=== PATIENT | female | born 1980 | race Caucasian/White ===

== ENCOUNTER 2016-12-07 09:22 | Observation (INO) | payer BC ==
[2016-12-01 09:28] VITALS: Ht 160 cm; Wt 78.9 kg
--- NOTE | 2016-12-01 09:54 | PAT Medication Instructions ---
Service Date Dec 01, 2016. Current Home Medication List Cholecalciferol (Vitamin D3), 1 CAP PO HS Hydrochlorothiazide (Hydrochlorothiazide), 1 TAB PO QAM Levothyroxine Sodium (Levothyroxine Sodium), 1 TAB PO QAM Metformin Hcl (Glucophage), 1,000 MG PO NOON/PM Multivitamins/Minerals (Mvi With Minerals), 1 TAB PO HS Medication Instructions For Your Scheduled Surgery - Hold the following medications 48 hours prior to surgery: Metformin Hcl (Glucophage), 1,000 MG PO NOON/PM - Hold the following medications the morning of surgery: Hydrochlorothiazide (Hydrochlorothiazide), 1 TAB PO QAM - Take the following medications the morning of surgery with a sip of water: Levothyroxine Sodium (Levothyroxine Sodium), 1 TAB PO QAM - Take the following medications as scheduled the night before surgery: Multivitamins/Minerals (Mvi With Minerals), 1 TAB PO HS Cholecalciferol (Vitamin D3), 1 CAP PO HS If you have any questions please call us at [phone] or [phone] or [phone]
[2016-12-01 10:24] LABS: BASO % 0.4 %; BASO ABS # 0.04 K/uL (0-0.2); COMPLETE YES; EOS % 6.1 %; HEMATOCRIT 41.4 % (37-47); IG% 0.4 %; LYMPH % 36.1 %; LYMPH ABS # 3.56 K/uL (1.2-3.4); MEAN CELL VOLUME 82.3 fL (80-100); MEAN CORPUSCULAR HEMOGLOBIN 28.2 pg (25-34); MEAN CORPUSCULAR HGB CONC 34.3 g/dl (32-36); MEAN PLATELET VOLUME 9.7 fL (7.4-10.4); MONO % 8.2 %; NEUT % 48.8 %; PLATELET COUNT 280 K/uL (130-400); RED BLOOD COUNT 5.03 M/uL (4.2-5.4); WHITE BLOOD COUNT 9.86 K/uL (4.8-10.8)
[2016-12-01 10:39] LABS: PROTHROMBIN TIME (PATIENT) 10.5 SECONDS (9.0-12.0)
[~2016-12-07] VITALS: Ht 160 cm; Wt 78.9 kg
[2016-12-07] VITALS (8 sets, daily range): BP systolic 95–121; BP diastolic 64–75; PULSE 76–98; TEMP 36.6–37.1; O2SAT 97–98
[~2016-12-07 09:22] MED LIST: CEFAZOLIN 2000 MG/60 ML D5W IV SCH; CHOL2000 PO; FENTANYL CITRATE INJ 50 MCG/1 ML 2 ML VIAL ONE; HYDR12.55 PO; HYDROmorphone INJ 2 MG/ML SYR/VIAL ONE; LACTATED RINGER'S 1000ML 1,000 ML IV SCH; LEVO88TA3 PO; METF-384 PO; MIDAZOLAM HCL 1 MG/ML 2ML VIAL ONE; MULT-513 PO
[2016-12-07] MEDS ORDERED: SCOPOLAMINE 1.5 MG TDSY TD ONE (10:58)
[2016-12-07] MEDS ORDERED: LIDOCAINE/EPINEPHRINE 1% 20 ML VIAL ONE (11:34)
[2016-12-07] MEDS ORDERED: BUPIVACAINE 0.25% 30 ML VIAL ONE (11:35)
[2016-12-07] MEDS ORDERED: GENTAMICIN SULFATE 40 MG/ML 2 ML VIAL ONE ×2 (11:35→13:12)
[2016-12-07] MEDS ORDERED: CEFAZOLIN SOD 1 GM VIAL ONE ×2 (11:35→13:12)
[2016-12-07] MEDS ORDERED: BACITRACIN 50000 UNIT VIAL ONE ×2 (11:36→13:12)
--- NOTE | 2016-12-07 11:38 | History & Physical Bridge Note ---
H&P Re-Evaluation Bridge Note: I have examined the patient, reviewed the History & Physical and in the interval since the performance of the History & Physical I have noted the following changes of clinical significance: No changes noted
[2016-12-07] MEDS ORDERED: ONDANSETRON INJ 2 MG/ML 2 ML VIAL ONE (12:20)
[2016-12-07] MEDS ORDERED: LIDOCAINE HCL 2% 2 ML VIAL (20MG/ML) ONE (12:20)
[2016-12-07] MEDS ORDERED: METOCLOPRAMIDE HCL INJ 5 MG/ML 2 ML VIAL ONE (12:20)
[2016-12-07] MEDS ORDERED: ROCURONIUM BROMIDE 10 MG/ML 5 ML VIAL ONE (12:20)
[2016-12-07] MEDS ORDERED: PROPOFOL IV EMULSION 10 MG/ML 20 ML VIAL IV ONE (12:20)
[2016-12-07] MEDS ORDERED: DiphenhydrAMINE HCL 50 MG/ML VIAL ONE (12:20)
[2016-12-07] MEDS ORDERED: ACETAMINOPHEN 1000 MG/100 ML IV IV ONE (13:13)
[2016-12-07] MEDS ORDERED: PHENYLEPHRINE HCL INJ 10 MG/ML VIAL ONE (13:43)
[2016-12-07] MEDS ORDERED: FENTANYL CITRATE INJ 50 MCG/1 ML 2 ML VIAL ONE ×2 (14:07→15:44)
--- NOTE | 2016-12-07 15:26 | [facility] Post Operative Brief Note ---
Immediate Operative Summary Operative Date Dec 07, 2016. Pre-Operative Diagnosis Mastectomy, need for breast reconstruction Post-Operative Diagnosis same as preop Procedure(s) Performed First Stage Bilateral Delayed Breast Reconstruction with Tissue Power Tool Repair Technician and Acellular Dermal Matrix Surgeon Dr. Thalia Gordon Benefits Officer Surgeon(s) Esther Leon PA-C Estimated Blood Loss 25 Findings 300 cc saline in each side Specimens A: Left breast scar B: Right breast scar C: Additional tissue- Right breast inframammary fold corresponding to positive margin on right mastectomy- sent fresh from room at 1408 Drains MARCIAL x2 Anesthesia general Complication(s) None Disposition Recovery Room / PACU
--- NOTE | 2016-12-07 15:39 | Discharge Instructions ---
Discharge Instructions Date of Service Dec 07, 2016. Admission Reason for Admission: Breast Reconstruction Discharge Discharge Diagnosis / Problem: breast reconstruction Discharge Goals Goal(s): Decrease discomfort Activity Recommendations Activity Limitations: per Instructions/Follow-up section ACTIVITY RECOMMENDATIONS: __Normal activities _x_No bending, lifting or straining __No driving __Driving allowed when you are off pain medications _x_Walking permitted __You should have help at home for ___ days DRESSINGS: __No dressings required _x_Keep dressings dry/in place until first office visit __Remove dressings ___ and leave dressings off __Apply ice ___ days __Remove dressings and reapply garment __Apply antibiotic ointment (Bacitracin, Neosporin, etc) to wounds 3-4 times/ day for 10 days BATHING: _x_Keep dressings dry _x_Sponge bathing permitted __Showering permitted _x_No swimming, hot tubs or soaking in a tub MEDICATIONS: Resume previous medications unless instructed otherwise by your surgeon. _x_Do not use aspirin, Motrin, Advil or Ibuprofen as these may promote bleeding. Please use Tylenol. _x_Prescription(s) provided: pain medication and antibiotics were provided at your last office visit OTHER INSTRUCTIONS: _x_Record drain output 2-3 times per day SPECIAL CARE INSTRUCTIONS: * It is normal to have a mild fever after surgery. If your temperature is higher than 101.5 degrees F, please call the office at [phone]. * Constipation is a typical side effect of pain medication. An over-the- counter stool softener will help relieve this. * Leaking around surgical drains may occur and should not cause concern. Sometimes these drains become clogged. If this happens, remove the bulb and milk the clot out of the tube, then replace the bulb. * Drainage from wounds after liposuction is normal and should be expected. Garments will become soiled. You should protect furniture and bedding. This drainage should mostly subside within 2-3 days. Leave garments in place unless instructed to remove them. * If you have unusual drainage from a wound or are concerned you have an infection or have any questions or concerns, please call the office at [phone]. FOLLOW UP VISIT: If not already scheduled, please call the office, , when you return home after surgery to schedule an appointment to be seen in __1_ days. . Current Hospital Diet Patient's current hospital diet: Gluten Free Diet Discharge Diet Recommended Diet: Regular Diet Procedures Procedures Performed: First Stage Bilateral Delayed Breast Reconstruction with Tissue Insurance Adviser and Acellular Dermal Matrix Pending Studies Studies pending at discharge: yes List of pending studies: pathology Medical Emergencies . Who to Call and When: Medical Emergencies: If at any time you feel your situation is an emergency, please call 911 immediately. . Non-Emergent Contact Non-Emergency issues call your: Primary Care Provider, Surgeon . "Provider Documentation" section prepared by Esther Leon. . VTE Core Measure Inpt VTE Proph given/why not?: SCD's [place] Drug Monitoring Program Search Results: no issues identified
[2016-12-07] MEDS ORDERED: HYDROmorphone INJ 2 MG/ML SYR/VIAL ONE (15:44)
[2016-12-07] MEDS ORDERED: OXYCODONE/ACETAMINOPHEN 5-325 TAB PO PRN (15:45)
[2016-12-07] MEDS ORDERED: MoRPHine SULFATE 4 MG/ML 1 ML CARP\\VIAL IV PRN (15:45)
[2016-12-07] MEDS ORDERED: PROMETHAZINE HCL INJ 12.5 MG in SODIUM CHLORIDE 0.9% 50ML 50 ML IV PRN (15:45)
[2016-12-07] MEDS ORDERED: MoRPHine SULFATE 2 MG/ML CARP IV PRN ×2 (15:45)
[2016-12-07] MEDS ORDERED: FENTANYL CITRATE INJ 50 MCG/1 ML 2 ML VIAL IV PRN (15:45)
[2016-12-07] MEDS ORDERED: ACETAMINOPHEN 325 MG TAB PO PRN (15:45)
[2016-12-07] MEDS ORDERED: ATROPINE SULFATE 0.1 MG/ML 5ML SYR IV PRN (15:45)
[2016-12-07] MEDS ORDERED: EpHEDrine SULFATE INJ 50 MG/ML AMP IV PRN (15:45)
[2016-12-07] MEDS ORDERED: ONDANSETRON INJ 2 MG/ML 2 ML VIAL IV PRN ×2 (15:45)
[2016-12-07] MEDS ORDERED: PROMETHAZINE HCL INJ 6.25 MG in SODIUM CHLORIDE 0.9% 50ML 50 ML IV PRN (15:45)
[2016-12-07] MEDS ORDERED: DiphenhydrAMINE HCL 50 MG/ML VIAL IV PRN (15:45)
[2016-12-07] MEDS ORDERED: OXAZEPAM 10MG CAP PO PRN (15:45)
[2016-12-07] MEDS ORDERED: HYDROmorphone INJ 1 MG/ML SYR IV PRN (15:45)
[2016-12-07] MEDS ORDERED: IV FLUIDS COMPLETED PRN (16:15)
--- NOTE | 2016-12-07 16:59 | Anesthesiology Progress Note ---
Anesthesia Post Op Note Date & Time Dec 07, 2016 at 16:59 Vital Signs Pain Intensity: 2 Vital Signs Past 12 Hours Date Time Temp Pulse Resp B/P (MAP) Pulse Ox O2 Delivery O2 Flow Rate FiO2 12/07/16 16:44 102 18 99 12/07/16 16:44 104 18 12/07/16 16:41 112/76 12/07/16 16:39 100 23 100 12/07/16 16:39 100 23 12/07/16 16:36 118/74 12/07/16 16:34 80 20 100 12/07/16 16:34 79 20 12/07/16 16:31 122/75 12/07/16 16:29 91 21 12/07/16 16:29 89 21 100 12/07/16 16:26 114/74 12/07/16 16:24 89 27 100 12/07/16 16:24 85 27 12/07/16 16:23 36.4 12/07/16 16:21 122/74 12/07/16 16:20 90 16 100 12/07/16 16:20 91 16 12/07/16 16:19 126/74 12/07/16 16:15 92 23 12/07/16 16:15 93 23 100 12/07/16 16:11 116/84 12/07/16 16:10 94 18 100 12/07/16 16:10 96 18 12/07/16 16:06 121/73 12/07/16 16:05 100 18 12/07/16 16:05 102 18 100 12/07/16 16:01 129/78 12/07/16 16:00 100 19 12/07/16 16:00 98 19 100 12/07/16 15:56 128/76 12/07/16 15:55 Nasal Cannula 3 12/07/16 15:55 95 21 12/07/16 15:55 95 21 100 12/07/16 15:51 124/76 12/07/16 15:50 94 18 100 12/07/16 15:50 92 18 12/07/16 15:46 121/79 12/07/16 15:45 100 18 12/07/16 15:45 100 18 100 12/07/16 15:41 128/74 12/07/16 15:40 103 14 12/07/16 15:40 104 14 100 12/07/16 15:38 129/75 12/07/16 15:35 36.7 106 16 129/75 98 Mask 10 12/07/16 09:38 36.7 97 18 112/73 (86) 98 Room Air Notes Mental Status: alert / awake / arousable, participated in evaluation Pt Amnestic to Procedure: Yes Nausea / Vomiting: adequately controlled Pain: adequately controlled Airway Patency, RR, SpO2: stable & adequate BP & HR: stable & adequate Hydration State: stable & adequate Anesthetic Complications: no major complications apparent
[2016-12-07] MEDS: LACTATED RINGER'S 1000ML 1,000 ML IV SCH (17:00)
[2016-12-07] MEDS: OXYCODONE/ACETAMINOPHEN 5-325 TAB PO PRN ×2 (19:26→23:37)
[2016-12-07] MEDS: CEFAZOLIN IV 2,000 MG in DEXTROSE 5% 50ML 50 ML IV SCH (20:26)
[2016-12-07] MEDS: CHOLECALCIFEROL 1000 INTER.UNIT TAB PO SCH (20:27)
[2016-12-07] MEDS: CEROVITE ADV FORMULA TAB PO SCH (20:27)
[2016-12-08 03:21] VITALS: BP 94/63; PULSE 84; TEMP 37; O2SAT 96
[2016-12-08] MEDS: CEFAZOLIN IV 2,000 MG in DEXTROSE 5% 50ML 50 ML IV SCH (03:32)
[2016-12-08] MEDS: LACTATED RINGER'S 1000ML 1,000 ML IV SCH ×2 (03:35→16:47)
[2016-12-08] MEDS: OXYCODONE/ACETAMINOPHEN 5-325 TAB PO PRN ×5 (03:40→22:04)
[2016-12-08] MEDS: LEVOTHYROXINE 88 MCG TAB PO SCH (06:10)
[2016-12-08 07:16] VITALS: BP 94/65; PULSE 99; TEMP 37.3; O2SAT 93
[2016-12-08 07:50] VITALS: O2SAT 93
[2016-12-08] MEDS: HYDROCHLOROTHIAZIDE 25 MG TAB PO SCH (08:19)
[2016-12-08] MEDS ORDERED: MULTIVITAMIN TAB PO SCH (09:00)
--- NOTE | 2016-12-08 09:36 | Progress Note ---
Progress Note Date of Service Dec 08, 2016. Progress Note POD #1 No issues overnight. Pain is tolerable with meds afebrile VSS dressings c/d/i breast mounds without hematomas JPs mostly serous right 110 cc, left 125 cc since OR continue surgical bra OOB as tolerated will continue to observe due to ongoing need for pain meds
[2016-12-08] MEDS: CEPHALEXIN MONOHYDRATE 500 MG CAP PO SCH ×2 (10:56→17:19)
[2016-12-08 11:30] VITALS: BP 101/69; PULSE 86; TEMP 36.8; O2SAT 100
[2016-12-08 15:21] VITALS: BP 99/69; PULSE 87; TEMP 36.8; O2SAT 98
[2016-12-08] MEDS: CEROVITE ADV FORMULA TAB PO SCH (20:51)
[2016-12-08] MEDS: CHOLECALCIFEROL 1000 INTER.UNIT TAB PO SCH (20:52)
[2016-12-08 23:14] VITALS: BP 99/65; PULSE 97; TEMP 37.1; O2SAT 96
[2016-12-09] MEDS: CEPHALEXIN MONOHYDRATE 500 MG CAP PO SCH (01:38)
[2016-12-09] MEDS: OXYCODONE/ACETAMINOPHEN 5-325 TAB PO PRN ×3 (03:04→13:18)
[2016-12-09] MEDS: LACTATED RINGER'S 1000ML 1,000 ML IV SCH (05:21)
[2016-12-09] MEDS: LEVOTHYROXINE 88 MCG TAB PO SCH (05:21)
[2016-12-09 07:10] VITALS: BP 110/66; PULSE 104; TEMP 36.7; O2SAT 96
[2016-12-09] MEDS ORDERED: OXYC-57 PO (07:47)
--- NOTE | 2016-12-09 07:49 | Surgery Progress Note ---
Surgery Progress Note Date of Service Dec 09, 2016. Subjective Post OP Day: 2 + feeling well, + pain controlled Objective Vital Signs: Date Time Temp Pulse Resp B/P (MAP) Pulse Ox O2 Delivery O2 Flow Rate FiO2 12/09/16 07:10 36.7 104 20 110/66 (81) 96 Room Air 12/08/16 23:30 Room Air 12/08/16 23:14 37.1 97 16 99/65 (76) 96 Room Air 12/08/16 16:30 Room Air 12/08/16 15:21 36.8 87 18 99/69 (79) 98 Room Air 12/08/16 11:30 36.8 86 17 101/69 (80) 100 Room Air 12/08/16 07:50 93 Room Air Physical Exam: Alan drainage (serous) General Appearance: WD/WN, no apparent distress Incision(s): clean, dry, intact, no erythema Assessment & Plan s/p bilateral delayed breast reconstruction using tissue expanders and alloderm matrix 1. pain better controlled today. dressing removed and incision CDI. Discharge instructions reviewed with patient. Will d/c home today
[2016-12-09] MEDS: HYDROCHLOROTHIAZIDE 25 MG TAB PO SCH (09:00)
--- NOTE | 2016-12-09 09:01 | [facility] Operative Report ---
Operative Report Operative Date Dec 09, 2016. Pre-Operative Diagnosis Mastectomy, need for breast reconstruction Surgeon Dr. Thalia Gordon Technical Staff Engineer Surgeon(s) Esther Leon PA-C Estimated Blood Loss 25ml Findings Bilateral seromas, see description below Specimens A: Left breast scar B: Right breast scar C: Additional tissue- Right breast inframammary fold corresponding to positive margin on right mastectomy- sent fresh from room at 1408 Drains MARCIAL x2 Anesthesia general Disposition Recovery Room / PACU Indications Patient is a 36-year-old female who is status post bilateral mastectomy and sentinel lymph node biopsy for DCIS. She desired to undergo breast reconstruction. Options including autologous reconstruction and tissue snack bar cook based reconstruction were reviewed. After discussion, she elected to proceed with placement of tissue expanders. Of note, she did have a focally positive margin along the inferior aspect of the right inframammary fold, and Dr. Negron asked me to remove additional tissue in this location. Description of Procedure Risks benefits and alternatives of procedure were explained to the patient agreeing signed consent. She was identified and marked in the preoperative holding area. She was brought to the operating room where she was positioned supine and placed under general anesthesia without incident. surgical sites were prepped and draped sterilely. Time-out procedures performed. I began with the left side. Prior scar was marked for excision. 1 percent lidocaine with epinephrine was used to anesthetize the planned incision. A 15 blade scalpel used to make elliptical incision and scar was removed using a scalpel. The incision was then deepened using electrocautery. This carried through subcutaneous tissue at which point a seroma pocket was in countered. A total of 170 cc of serous fluid was aspirated from the pocket and there was noted to be large extension of the pocket laterally along the chest wall. Inframammary fold was well defined. Due to formation of the seroma, no additional dissection of the mastectomy flaps were required. I therefore incised the pectoralis major muscle along its attachments on the rib and created a pocket using electrocautery and lighted retractor. At this point, I selected a medium contour thick piece of AlloDerm which was sutured into place. I began to suture this medially along the inframammary fold using interrupted U-stitches. This was carried laterally the extent of the inframammary fold. Once this was accomplished, the pocket was measured and was noted to be 13 centimeter base diameter. copious irrigation was performed 1st with sterile saline and then with triple antibiotic irrigation. Instruments were wiped down, and gloves were changed prior to handling the expanders. I therefore selected an Allergan 133 MV-T tissue snack bar cook which was sutured into place with anchoring sutures in 2 locations. I then placed a running 2-0 Vicryl suture from the inferior border of the pectoralis major muscle to the superior border of the AlloDerm. Excess AlloDerm was trimmed. Laterally the AlloDerm was sutured to the serrated fascia. Electrocautery was used to score the seroma cavity as well as the mastectomy flaps in order to promote adherence. MARCIAL drain was placed between the mastectomy flaps on the AlloDerm. The fill port was identified using a Magna Finder and a total of 300 cc were injected. Wound closure was begun using 2-0 Vicryl subcutaneous sutures, 2-0 Vicryl deep dermal sutures, 3 0 PDS interrupted superficial dermal sutures, 3 0 Monocryl running subcuticular suture. Dermabond perennial was applied. Similar procedure was undertaken on the right side. A complex seroma was identified on the right side with total volume of 200 cc. I was able to identify an area of residual breast tissue along the right inframammary fold corresponding to the location of the positive margin based on review of photographs provided by Dr. Negron. This tissue was excised using electrocautery and passed off as a fresh specimen. Esther Leon PA-C was present and scrubbed throughout the entire procedure and was instrumental in assisting to prepare the tissue expanders, providing retraction during dissection, and performing tissue expansion as well as assisting in simultaneous wound closure. I attest to the content of the Intraoperative Record and any orders documented therein. Any exceptions are noted below.
[2016-12-09 09:49] VITALS: BP 110/66; PULSE 104; TEMP 36.7; O2SAT 96
--- NOTE | 2016-12-10 08:25 | Discharge Summary ---
Discharge Summary Date of Service Dec 10, 2016. Admission Date/Reason Dec 07, 2016 at 09:45 Breast Reconstruction. Discharge Date/Disposition Dec 09, 2016 Home Diagnosis Principal Diagnosis: breast reconstruction following mastectomy Procedure(s) Performed bilateral delayed breast reconstruction using tissue expanders and alloderm matrix Medication Reconciliation New Medications: Oxycodone/Acetaminophen 5MG/325MG (Percocet 5MG/325MG) Tab 1 TABLET PO Q4H PRN for Pain, #30 TAB Continued Medications: Cholecalciferol (Vitamin D3) 2,000 Unit Cap 1 CAP PO HS for 90 Days, CAP 3 Refills Hydrochlorothiazide (Hydrochlorothiazide) 12.5 Mg Tab 1 TAB PO QAM for 90 Days, #90 TAB 3 Refills Levothyroxine Sodium (Levothyroxine Sodium) 88 Mcg Tab 1 TAB PO QAM for 90 Days, #90 TAB 3 Refills Metformin Hcl (Glucophage) 1,000 Mg Tab 1000 MG PO NOON/PM, TAB Multivitamins/Minerals (Mvi With Minerals) Tab 1 TAB PO HS, TAB Admission Physical Exam As per Admitting History & Physical. Hospital Course Patient presented to [facility] with history of breast cancer, s/p mastectomy. She was taken to the OR and underwent bilateral delayed breast reconstruction using tissue expanders and alloderm matrix. She had two ronald drains placed intraoperatively. On POD #1, the patient was having pain that was not well controlled. Her drains had serous and bloody output. She was kept for a second night for pain control. On POD #2 the patient's pain was well controlled using Percocet. On exam, her incisions were clean, dry, intact with no evidence of infection. She had serous output in her drains. She was discharged home in a stable condition. Discharge Instructions Please refer to the electronic Patient Visit Report (Discharge Instructions) for additional information.
== END 2016-12-09 13:56 | disposition home or self-care (01) ==
LOC: C.ACU 09:22 → C.MSN 09:45 → ENRESERV 15:56
PROVIDERS: ADMIT Plastic Surgery; ATTEND Plastic Surgery
DX: Z42.1 Encounter for breast reconstruction following mastectomy (principal); L76.34 Postprocedural seroma of skin and subcutaneous tissue following other procedure; I10 Essential (primary) hypertension; E03.9 Hypothyroidism, unspecified; Z85.3 Personal history of malignant neoplasm of breast; Z90.49 Acquired absence of other specified parts of digestive tract; Z82.49 Family history of ischemic heart disease and other diseases of the circulatory system; Z83.3 Family history of diabetes mellitus; Z80.41 Family history of malignant neoplasm of ovary

== ENCOUNTER → 2017-02-03 | Outpatient (CLI) | payer BC ==
[~2017-02-03] MED LIST changes: -CEFAZOLIN 2000 MG/60 ML D5W IV SCH; -FENTANYL CITRATE INJ 50 MCG/1 ML 2 ML VIAL ONE; -HYDROmorphone INJ 2 MG/ML SYR/VIAL ONE; -LACTATED RINGER'S 1000ML 1,000 ML IV SCH; -MIDAZOLAM HCL 1 MG/ML 2ML VIAL ONE; +OXYC-57 PO
== END | disposition home or self-care (01) ==
LOC: C.PAPS 09:26
PROVIDERS: ATTEND Obstetrics & Gynecology
DX: Z01.419 Encounter for gynecological examination (general) (routine) without abnormal findings (principal)

== ENCOUNTER → 2017-05-21 | Day surgery (SDC) | payer BC ==
[2017-05-20 15:46] VITALS: Ht 160 cm; Wt 81.8 kg
[~2017-05-21] VITALS: Ht 160 cm; Wt 81.8 kg
[~2017-05-21] MED LIST changes: +ACETAMINOPHEN 325 MG TAB PO PRN; +ATROPINE SULFATE 0.1 MG/ML 5ML SYR IV PRN; +BACITRACIN 50000 UNIT VIAL ONE; +BUPIVACAINE 0.25% 30 ML VIAL ONE; +CEFAZOLIN 2000MG IV PUSH 10 ML IV SCH; +CEFAZOLIN SOD 1 GM VIAL ONE; +DiphenhydrAMINE HCL 50 MG/ML VIAL ONE; +EpHEDrine SULFATE INJ 50 MG/ML AMP IV PRN; +FENTANYL CITRATE INJ 50 MCG/1 ML 2 ML VIAL ONE; +GENTAMICIN SULFATE 40 MG/ML 2 ML VIAL ONE; +HYDROmorphone INJ 0.5 MG/0.5 ML SYR ONE; +LACTATED RINGER'S 1000ML 1,000 ML IV SCH; +LIDOCAINE HCL 2% 2 ML VIAL (20MG/ML) ONE; +LIDOCAINE/EPINEPHRINE 1% INJ 50 ML VIAL ONE; +METOCLOPRAMIDE HCL INJ 5 MG/ML 2 ML VIAL IV PRN; +METOCLOPRAMIDE HCL INJ 5 MG/ML 2 ML VIAL ONE; +MIDAZOLAM HCL 1 MG/ML 2ML VIAL ONE; +ONDANSETRON INJ 2 MG/ML 2 ML VIAL IV PRN; +ONDANSETRON INJ 2 MG/ML 2 ML VIAL ONE; -OXYC-57 PO; +OXYCODONE/ACETAMINOPHEN 5-325 TAB PO PRN; +PATIENT'S HEIGHT AND/OR WEIGHT NEEDED SCH; +PROMETHAZINE HCL INJ 6.25 MG in SODIUM CHLORIDE 0.9% 50ML 50 ML IV PRN; +PROPOFOL IV EMULSION 10 MG/ML 20 ML VIAL IV ONE; +SODIUM CHLORIDE 0.9% 1000ML 1,000 ML IV SCH; +SODIUM CHLORIDE 0.9% INJ 10 ML VIAL ONE
--- NOTE | 2017-05-21 12:47 | [facility] Post Operative Brief Note ---
Immediate Operative Summary Operative Date May 21, 2017. Pre-Operative Diagnosis Encounter for bilateral breast following mastectomy Post-Operative Diagnosis Same Procedure(s) Performed Bilateral Breast Implant Exchange For Silicone Breast Implants, Adjust Right Inframammory Fold Surgeon Coach Tour Driver Surgeon(s) Prema Leon PA-C Estimated Blood Loss 3 ML Findings none Specimens A. Right Breast Scar B. Left Breast Scar Anesthesia general Complication(s) None Disposition Recovery Room / PACU
--- NOTE | 2017-05-21 12:57 | Discharge Instructions ---
Discharge Instructions Date of Service May 21, 2017. Admission Reason for Admission: Encounter For Breast Reconstruction Following Mast Discharge Discharge Diagnosis / Problem: encounter for breast reconstruction following mastectomy Discharge Goals Goal(s): Decrease discomfort Activity Recommendations Activity Limitations: per Instructions/Follow-up section ACTIVITY RECOMMENDATIONS: __Normal activities _x_No bending, lifting or straining __No driving __Driving allowed when you are off pain medications _x_Walking permitted __You should have help at home for ___ days DRESSINGS: __No dressings required _x_Keep dressings dry/in place until Wednesday __Remove dressings ___ and leave dressings off __Apply ice ___ days __Remove dressings and reapply garment __Apply antibiotic ointment (Bacitracin, Neosporin, etc) to wounds 3-4 times/ day for 10 days BATHING: _x_Keep dressings dry __Sponge bathing permitted _x_Showering permitted ON WEDNESDAY AFTER YOU REMOVE DRESSINGS _x_No swimming, hot tubs or soaking in a tub MEDICATIONS: Resume previous medications unless instructed otherwise by your surgeon. _x_Do not use aspirin, Motrin, Advil or Ibuprofen as these may promote bleeding. Please use Tylenol. _x_Prescription(s) provided: pain medication and antibiotics were provided to you OTHER INSTRUCTIONS: __Record drain output 2-3 times per day SPECIAL CARE INSTRUCTIONS: * It is normal to have a mild fever after surgery. If your temperature is higher than 101.5 degrees F, please call the office at [phone]. * Constipation is a typical side effect of pain medication. An over-the- counter stool softener will help relieve this. * Leaking around surgical drains may occur and should not cause concern. Sometimes these drains become clogged. If this happens, remove the bulb and milk the clot out of the tube, then replace the bulb. * Drainage from wounds after liposuction is normal and should be expected. Garments will become soiled. You should protect furniture and bedding. This drainage should mostly subside within 2-3 days. Leave garments in place unless instructed to remove them. * If you have unusual drainage from a wound or are concerned you have an infection or have any questions or concerns, please call the office at [phone]. FOLLOW UP VISIT: If not already scheduled, please call the office, , when you return home after surgery to schedule an appointment to be seen next week . Current Hospital Diet Patient's current hospital diet: Discharge Diet Recommended Diet: Regular Diet Procedures Procedures Performed: Bilateral Breast Implant Exchange For Silicone Breast Implants, Adjust Right Inframammory Fold Pending Studies Studies pending at discharge: yes List of pending studies: pathology Medical Emergencies . Who to Call and When: Medical Emergencies: If at any time you feel your situation is an emergency, please call 911 immediately. . Non-Emergent Contact Non-Emergency issues call your: Primary Care Provider, Surgeon . "Provider Documentation" section prepared by Esther Leon. . VTE Core Measure Inpt VTE Proph given/why not?: SCD's [place] Drug Monitoring Program Search Results: no issues identified
[2017-05-21] MEDS: FENTANYL CITRATE INJ 50 MCG/1 ML 2 ML VIAL IV PRN ×2 (13:29→13:35)
[2017-05-21 14:10] VITALS: TEMP 36.6
[2017-05-21 14:34] VITALS: BP 121/84; PULSE 95; O2SAT 99
--- NOTE | 2017-05-21 14:37 | Anesthesia Progress Nt - [facility] ---
Anesthesia Post Op Note Date & Time May 21, 2017 at 14:37 Vital Signs Pain Intensity: 5.0 Vital Signs Past 12 Hours Date Time Temp Pulse Resp B/P (MAP) Pulse Ox O2 Delivery O2 Flow Rate FiO2 05/21/17 14:34 95 16 121/84 (96) 99 Room Air 05/21/17 14:10 36.6 101 16 129/85 (100) 98 Room Air 05/21/17 13:57 37.2 05/21/17 13:56 125/85 (96) 05/21/17 13:53 103 14 98 05/21/17 13:53 107 14 05/21/17 13:51 124/81 (92) 05/21/17 13:48 100 15 05/21/17 13:48 102 15 97 05/21/17 13:46 131/83 (104) 05/21/17 13:43 103 18 100 05/21/17 13:43 101 18 05/21/17 13:41 126/72 (102) 05/21/17 13:40 Room Air 05/21/17 13:38 116 22 100 05/21/17 13:38 112 22 05/21/17 13:36 124/81 (98) 05/21/17 13:33 105 15 05/21/17 13:33 103 15 100 05/21/17 13:31 113/88 (94) 05/21/17 13:28 97 16 05/21/17 13:28 98 16 100 05/21/17 13:26 122/86 (100) 05/21/17 13:23 104 16 100 05/21/17 13:23 106 16 05/21/17 13:21 116/88 (97) 05/21/17 13:18 112 20 100 05/21/17 13:18 104 20 05/21/17 13:16 120/87 (98) 05/21/17 13:13 103 23 05/21/17 13:13 106 23 100 05/21/17 13:11 132/82 (89) 05/21/17 13:08 118 22 100 05/21/17 13:08 118 22 05/21/17 13:06 112/84 (87) 05/21/17 13:03 106 29 05/21/17 13:03 106 29 100 05/21/17 13:01 126/82 (93) 05/21/17 12:59 127/90 (109) 05/21/17 12:58 37.2 95 16 127/90 100 Mask 6 05/21/17 09:17 37 95 16 118/83 (95) 98 Room Air Notes Mental Status: alert / awake / arousable, participated in evaluation Pt Amnestic to Procedure: Yes Nausea / Vomiting: adequately controlled Pain: adequately controlled Airway Patency, RR, SpO2: stable & adequate BP & HR: stable & adequate Hydration State: stable & adequate Anesthetic Complications: no major complications apparent
--- NOTE | 2017-05-21 15:13 | OPERATIVE REPORT ---
DATE OF OPERATION: 05/21/2017 PREOPERATIVE DIAGNOSIS: Status post first stage delayed breast reconstruction with tissue director search marketing strategies and AlloDerm, desiring replacement with permanent prosthesis. POSTOPERATIVE DIAGNOSIS: Same. PROCEDURE: Bilateral breast implant exchange with silicone breast implants and right capsulorrhaphy. SURGEON: Thalia Gordon MD SPORTS PHYSICIAN: Esther Leon PA-C ANESTHESIA: General. COMPLICATIONS: None. INDICATION FOR THE PROCEDURE: The patient is a 36-year-old female who underwent mastectomy for breast cancer followed by delayed first stage breast reconstruction. After complete tissue expansion and satisfaction with her size, we scheduled her to perform bilateral implant exchange. BRIEF DESCRIPTION OF THE PROCEDURE: Risks, benefits, and alternatives of the procedure were explained to patient, who agreed and signed consent. She was identified and marked in the preoperative holding area. She was brought to the operating room where she was positioned supine and placed under anesthesia without incident. Surgical site was prepped and draped sterilely. A time-out procedure was performed. I began with the right side as this the side needing adjustment of the inframammary fold. The prior mastectomy incision was marked for excision and 1% lidocaine with epinephrine was used to anesthetize the incision. A 15 blade scalpel was used to make the narrow elliptical incision. The incision was deepened using electrocautery through dermis, underlying subcutaneous fat and pectoralis muscle until the implant capsule was identified. The director search marketing strategies was punctured and saline was aspirated. Gas Producer was freed up and removed from the pocket. The pocket was inspected, and no significant abnormalities were identified other than a very asymmetric inframammary fold which appeared to be a result of partial dehiscence of the AlloDerm repair along the inframammary fold. Therefore, electrocautery was used to excise a small portion of capsule and to score the remaining capsule in order to facilitate plication. 0 Ethibond suture was used to place U stitches from the rib periosteum to the capsule and underlying superficial fascial system to allow creation of inframammary fold. This was performed along the previously marked desired location of the inframammary fold. Once this was complete, I was satisfied with the appearance of the inframammary fold, as well as the location. Given patient's desire to remain as large as possible as she was previously a triple D, I tried an 800 mL implant in the pocket and this appeared to have a nice shape and reasonable fill of the pocket without being under undue tension. The sizer was removed and the pocket was packed using triple antibiotic irrigation, soaked lap sponges and 0.25% Marcaine. Attention was then turned to the left side. The incision was similarly opened and the director search marketing strategies was punctured and removed. Pocket was inspected and noted to have no abnormalities. I was satisfied with the location of the inframammary fold. I tried the 800 mL sizer implant and was satisfied with the appearance. Therefore, after the pocket was packed and Marcaine was instilled, both pockets were copiously irrigated using triple antibiotic irrigation. Gloves were changed and instruments were wiped down and I selected a permanent prosthesis. Identical implants were chosen. These were 800 mL Allergan and Natrelle INSPIRA extra full projection soft touch implants. These were each placed into the pocket and the pockets were closed using 2-0 Vicryl capsular sutures, 2-0 Vicryl deep dermal sutures, 3-0 PDS interrupted superficial dermal sutures and 3-0 Monocryl running subcuticular suture. Dermabond was applied to both incisions. Dry dressings and a surgical bra were placed. The patient was awakened and transferred to recovery room in satisfactory condition. There were no complications. Esther Leon PA-C was present and scrubbed throughout the entire procedure and was instrumental in providing retraction and assisting in simultaneous wound closure. I attest to the content of the Intraoperative Record and any orders documented therein. Any exceptions are noted below. ИВАН
== END | disposition home or self-care (01) ==
LOC: X.SURG 09:04
PROVIDERS: ATTEND Plastic Surgery
DX: Z42.1 Encounter for breast reconstruction following mastectomy (principal); Z85.3 Personal history of malignant neoplasm of breast; Z15.01 Genetic susceptibility to malignant neoplasm of breast; Z15.02 Genetic susceptibility to malignant neoplasm of ovary; I10 Essential (primary) hypertension; E03.9 Hypothyroidism, unspecified; Z51.0 Encounter for antineoplastic radiation therapy; Z79.84 Long term (current) use of oral hypoglycemic drugs; Z79.899 Other long term (current) drug therapy; E11.9 Type 2 diabetes mellitus without complications; E66.9 Obesity, unspecified

== ENCOUNTER → 2018-01-10 | Outpatient (CLI) | payer BC ==
[~2018-01-10] MED LIST changes: -ACETAMINOPHEN 325 MG TAB PO PRN; -ATROPINE SULFATE 0.1 MG/ML 5ML SYR IV PRN; -BACITRACIN 50000 UNIT VIAL ONE; -BUPIVACAINE 0.25% 30 ML VIAL ONE; -CEFAZOLIN 2000MG IV PUSH 10 ML IV SCH; -CEFAZOLIN SOD 1 GM VIAL ONE; -DiphenhydrAMINE HCL 50 MG/ML VIAL ONE; -EpHEDrine SULFATE INJ 50 MG/ML AMP IV PRN; -FENTANYL CITRATE INJ 50 MCG/1 ML 2 ML VIAL ONE; -GENTAMICIN SULFATE 40 MG/ML 2 ML VIAL ONE; -HYDROmorphone INJ 0.5 MG/0.5 ML SYR ONE; -LACTATED RINGER'S 1000ML 1,000 ML IV SCH; -LIDOCAINE HCL 2% 2 ML VIAL (20MG/ML) ONE; -LIDOCAINE/EPINEPHRINE 1% INJ 50 ML VIAL ONE; -METOCLOPRAMIDE HCL INJ 5 MG/ML 2 ML VIAL IV PRN; -METOCLOPRAMIDE HCL INJ 5 MG/ML 2 ML VIAL ONE; -MIDAZOLAM HCL 1 MG/ML 2ML VIAL ONE; +MTR600X PO; -ONDANSETRON INJ 2 MG/ML 2 ML VIAL IV PRN; -ONDANSETRON INJ 2 MG/ML 2 ML VIAL ONE; -OXYCODONE/ACETAMINOPHEN 5-325 TAB PO PRN; +PARO10TA PO; -PATIENT'S HEIGHT AND/OR WEIGHT NEEDED SCH; -PROMETHAZINE HCL INJ 6.25 MG in SODIUM CHLORIDE 0.9% 50ML 50 ML IV PRN; -PROPOFOL IV EMULSION 10 MG/ML 20 ML VIAL IV ONE; -SODIUM CHLORIDE 0.9% 1000ML 1,000 ML IV SCH; -SODIUM CHLORIDE 0.9% INJ 10 ML VIAL ONE
== END | disposition home or self-care (01) ==
LOC: C.LABMFLN 14:36
PROVIDERS: ATTEND Plastic Surgery
DX: Z01.818 Encounter for other preprocedural examination (principal); Z42.1 Encounter for breast reconstruction following mastectomy

== ENCOUNTER → 2018-01-11 | Day surgery (SDC) | payer BC ==
[2018-01-03 09:07] VITALS: Ht 160 cm; Wt 84.1 kg
[~2018-01-11] VITALS: Ht 160 cm; Wt 84.1 kg
[~2018-01-11] MED LIST changes: +ATROPINE SULFATE 0.1 MG/ML 5ML SYR IV PRN; +CEFAZOLIN 2000MG IV PUSH 15 ML IV SCH; +DEXAMETHASONE SOD INJ 4 MG/ML VIAL ONE; +EpHEDrine SULFATE INJ 50 MG/ML AMP IV PRN; +FENTANYL CITRATE INJ 50 MCG/1 ML 2 ML VIAL ONE; +HYDROCODONE/ACETAMIN 5/325MG TAB PO PRN; +HYDROmorphone INJ 0.5 MG/0.5 ML SYR IV PRN; +LIDOCAINE HCL 1% 20 ML VIAL ONE; +LIDOCAINE HCL 2% 2 ML VIAL (20MG/ML) ONE; +METOCLOPRAMIDE HCL INJ 5 MG/ML 2 ML VIAL IV PRN; +MIDAZOLAM HCL 1 MG/ML 2ML VIAL ONE; +MoRPHine SULFATE 2 MG/ML CARP IV PRN; +MoRPHine SULFATE 4 MG/ML 1 ML CARP\\VIAL IV PRN; +ONDANSETRON INJ 2 MG/ML 2 ML VIAL IV PRN; +ONDANSETRON INJ 2 MG/ML 2 ML VIAL ONE; +PHENYLEPHRINE 100MCG/ML 5ML SYR IV PRN; +PROMETHAZINE HCL INJ 12.5 MG in SODIUM CHLORIDE 0.9% 50ML 50 ML IV PRN; +PROPOFOL IV EMULSION 10 MG/ML 20 ML VIAL ONE; +SCOPOLAMINE 1.5 MG TDSY TD SCH; +SODIUM CHLORIDE 0.9% 1000ML 1,000 ML IV SCH
[2018-01-11] MEDS: LACTATED RINGER'S 1000ML 1,000 ML IV SCH ×2 (09:24→12:42)
--- NOTE | 2018-01-11 11:48 | [facility] Post Operative Brief Note ---
Immediate Operative Summary Operative Date Jan 11, 2018. Pre-Operative Diagnosis Encounter for Breast [id number] following Mastectomy Post-Operative Diagnosis same Procedure(s) Performed Bilateral Nipple Reconstruction Surgeon Dr. Prema Gordon Master Dyer Surgeon(s) 0 Estimated Blood Loss 15 Findings Consistent with Post-Op Diagnosis Specimens none Drains None Anesthesia Type General Disposition Disposition: Recovery Room / PACU
[2018-01-11] MEDS: FENTANYL CITRATE INJ 50 MCG/1 ML 2 ML VIAL IV PRN ×4 (12:03→12:25)
--- NOTE | 2018-01-11 12:03 | Discharge Instructions-SurgCtr ---
Discharge Instructions Date of Service Jan 11, 2018. Visit Reason for Visit: Encounter For Breast Reconstruction Following Mast Discharge Discharge Diagnosis / Problem: s/p mastectomy with reconstruction Discharge Goals Goal(s): Decrease discomfort, Improve function Activity Recommendations Activity Limitations: per Instructions/Follow-up section Anesthesia . Post Anesthesia Instructions: If you have had General Anesthesia or IV Sedation: * Do not drive today. * Resume driving when surgeon permits. * Do not make important decisions or sign legal documents today. * Call surgeon for: 1. Temperature elevations greater than 101 degrees F. 2. Uncontrollable pain. 3. Excessive bleeding. 4. Persistent nausea and vomiting. 5. Medication intolerance (nausea, vomiting or rash). * For nausea and vomiting use only clear liquids such as: tea, soda, bouillon until nausea subsides, then gradually increase diet as tolerated. * If you have any concerns or questions, call your surgeon's office. If physician is unavailable and it is an emergency, call 911 or go to the nearest emergency room. . Instructions / Follow-Up Instructions / Follow-Up ACTIVITY RECOMMENDATIONS: __Normal activities _x_No bending, lifting or straining __No driving _x_Driving allowed when you are off pain medications __Walking permitted __You should have help at home for ___ days DRESSINGS: __No dressings required _x_Keep dressings dry/in place until first office visit __Remove dressings ___ and leave dressings off __Apply ice ___ days __Remove dressings and reapply garment __Apply antibiotic ointment (Bacitracin, Neosporin, etc) to wounds 3-4 times/ day for 10 days BATHING: x_Keep dressings dry _x_Sponge bathing permitted __Showering permitted __No swimming, hot tubs or soaking in a tub MEDICATIONS: Resume previous medications unless instructed otherwise by your surgeon. _x_Do not use aspirin, Motrin, Advil or Ibuprofen as these may promote bleeding. Please use Tylenol. _x_Prescription(s) provided: in office OTHER INSTRUCTIONS: __Record drain output 2-3 times per day SPECIAL CARE INSTRUCTIONS: * It is normal to have a mild fever after surgery. If your temperature is higher than 101.5 degrees F, please call the office at [phone]. * Constipation is a typical side effect of pain medication. An over-the- counter stool softener will help relieve this. * Leaking around surgical drains may occur and should not cause concern. Sometimes these drains become clogged. If this happens, remove the bulb and milk the clot out of the tube, then replace the bulb. * Drainage from wounds after liposuction is normal and should be expected. Garments will become soiled. You should protect furniture and bedding. This drainage should mostly subside within 2-3 days. Leave garments in place unless instructed to remove them. * If you have unusual drainage from a wound or are concerned you have an infection or have any questions or concerns, please call the office at [phone]. FOLLOW UP VISIT: If not already scheduled, please call the office, , when you return home after surgery to schedule an appointment to be seen in __2_ days. Diet Recommendations Home Diet: no limitations, resume previous diet Procedures Procedures Performed: Bilateral Nipple Reconstruction Pending Studies Studies pending at discharge: no Medical Emergencies . Who to Call and When: Medical Emergencies: If at any time you feel your situation is an emergency, please call 911 immediately. . Non-Emergent Contact Non-Emergency issues call your: Primary Care Provider . . "Provider Documentation" section prepared by Thalia Gordon. .
--- NOTE | 2018-01-11 12:31 | Anesthesia Progress Nt - [facility] ---
Anesthesia Post Op Note Date & Time Jan 11, 2018 at 12:31 Vital Signs Pain Intensity: 4.0 Vital Signs Past 12 Hours Date Time Temp Pulse Resp B/P (MAP) Pulse Ox O2 Delivery O2 Flow Rate FiO2 01/11/18 11:54 36 85 16 120/69 100 Mask 6 01/11/18 08:40 36.8 73 16 130/90 (103) 100 Room Air Notes Mental Status: alert / awake / arousable, participated in evaluation Pt Amnestic to Procedure: Yes Nausea / Vomiting: adequately controlled Pain: adequately controlled Airway Patency, RR, SpO2: stable & adequate BP & HR: stable & adequate Hydration State: stable & adequate Anesthetic Complications: no major complications apparent
[2018-01-11 13:15] VITALS: BP 118/83; PULSE 75; TEMP 36.6; O2SAT 99
--- NOTE | 2018-01-12 20:57 | OPERATIVE REPORT ---
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 PROCEDURE: Bilateral nipple reconstruction using spiral flaps. SURGEON: Thalia Gordon MD RESIDENT PHYSICIAN: None. ANESTHESIA: General. COMPLICATIONS: None. INDICATION FOR THE PROCEDURE: The patient is a 37-year-old female who underwent bilateral mastectomy with tissue shearer screen measurer and trimmer based reconstruction followed by placement of permanent breast prostheses. She desired reconstruction of the nipple-areolar complexes. Given her scar position, I felt it would be reasonable to proceed with nipple reconstruction using spiral flap with tattooing of the nipple and areola in about 3 months. BRIEF DESCRIPTION OF THE PROCEDURE: The risks, benefits and alternatives of the procedure were explained to the patient who agreed and signed consent. She was identified and marked in the preoperative holding area. Nipple areolar complex position was verified with the patient prior to proceeding. The patient was brought to the operating room where she was positioned supine and placed under anesthesia without incident. Surgical site was prepped and draped sterilely. I began with the left side. Markings were assessed and flaps were marked. Flaps were designed as an inferiorly based flap inferior to the mastectomy incision. The base of the flap was marked to be 1 cm in diameter in medial and lateral aspects of the flap and marked to be 5 cm in length tapering up toward the prior incision. 0.25% Marcaine plain was used to anesthetize the area. A 15-blade scalpel was used to make the incisions. Flaps were raised with some underlying subcutaneous tissue. There was no exposure of the implant during raising of the flaps. Hemostasis was achieved with electrocautery. The incision was closed using 3-0 PDS interrupted dermal sutures. The spiral flaps were then sutured using 6-0 Vicryl interrupted sutures to create a projecting nipple. The excess skin at the tips of the flaps was excised using curved iris scissor. The edges of the flaps were pink and viable and bleeding at the end of the case. The incision was closed using 3-0 Monocryl running subcuticular suture. A similar procedure was undertaken on the right side. The procedure was tolerated well. Dermabond was applied to the incisions and the nipples were dressed using bacitracin, Xeroform followed by fluffs sponges. [place] foam was used to create a donut dressing to place around the nipple to prevent compression. The procedure was tolerated well. The patient was awakened and transferred to recovery in satisfactory condition. I attest to the content of the Intraoperative Record and any orders documented therein. Any exception s are noted below.
== END | disposition home or self-care (01) ==
LOC: X.SURG 08:22
PROVIDERS: ATTEND Plastic Surgery
DX: Z42.1 Encounter for breast reconstruction following mastectomy (principal); I10 Essential (primary) hypertension; E11.9 Type 2 diabetes mellitus without complications; Z15.01 Genetic susceptibility to malignant neoplasm of breast; Z15.09 Genetic susceptibility to other malignant neoplasm; E03.9 Hypothyroidism, unspecified; Z79.84 Long term (current) use of oral hypoglycemic drugs; Z85.3 Personal history of malignant neoplasm of breast; Z79.899 Other long term (current) drug therapy; E66.9 Obesity, unspecified; Z68.32 Body mass index [BMI] 32.0-32.9, adult